=== PATIENT | male | born 1945 | race African-American/Black ===

== ENCOUNTER 2022-12-20 12:14 | Emergency (ER) | payer OTHER ==
[~2022-12-20] VITALS: Ht 165.1 cm; Wt 55.0 kg
[2022-12-20] MEDS ORDERED: ACETAMINOPHEN 650MG SUPP PR STA (12:28)
[2022-12-20] MEDS ORDERED: CEFEPIME 1,000 MG in DEXT 5% WATER 100 ML IV ONE (12:30)
[2022-12-20] MEDS ORDERED: VANCOMYCIN 1G PREMIX 200 ML IV ONE (12:30)
[2022-12-20] MEDS ORDERED: SODIUM CHLORIDE 0.9% 1,000 ML IV ONE (12:30)
[2022-12-20] MEDS ORDERED: CEFEPIME 1,000 MG in DEXTROSE 5% WATER 50 ML IV NR (13:00)
[2022-12-20 13:19] LABS: BASOPHILS % 0.4 % (0.0-2.0); HEMATOCRIT. 24.9 % (42.0-52.0); HEMOGLOBIN. 7.6 g/dL (14.0-18.0); LYMPHOCYTES % 31.5 % (20.0-50.0); MEAN CORPUSCULAR HEMOGLOBIN 27.1 pg (28.0-32.0); MEAN CORPUSCULAR VOLUME 89.3 fL (80.0-94.0); MEAN PLATELET VOLUME 8.9 fl (7.4-10.4); MONOCYTES % 5.6 % (2.0-8.0); NEUTROPHILS % 62.5 % (40.0-76.0); PLATELET 87 x1000/uL (130-400); RED BLOOD CELL COUNT 2.79 mill/uL (4.7-6.1); RED CELL DISTRIBUTION WIDTH 24.3 % (11.6-14.6)
[2022-12-20 13:21] LABS: CHLORIDE 118 mEq/L (98-107)
[2022-12-20 14:13] LABS: PLATELET ESTIMATE DECREASED
[2022-12-20] MEDS ORDERED: LEVETIRACETAM 1000MG PREMIX 100 ML IV ONE (15:15)
[2022-12-20] MEDS ORDERED: DEXAMETHASONE 10 MG/ML VIAL IV ONE (15:30)
[2022-12-20 15:34] LABS: CLARITY URINE CLOUDY (CLEAR); COLOR URINE YELLOW (YELLOW); KETONES URINE 1+ (NEGATIVE); LEUKOCYTE ESTERASE URINE 3+ (NEGATIVE); NITRITE URINE NEGATIVE (NEGATIVE); OCCULT BLOOD URINE TRACE (NEGATIVE); PH URINE 5.5 (4.5-8.0); PROTEIN URINE 1+ (NEGATIVE); SPECIFIC GRAVITY URINE 1.015 (1.005-1.030); UROBILINOGEN URINE 0.2 E.U./dL (0.2-1.0)
[2022-12-20 18:24] VITALS: BP 127/62
== END 2022-12-20 18:54 | disposition short-term general hospital (02) ==
LOC: ER 12:14 → CANBEDREQ 14:00 → ER 18:54
DX: A41.9 Sepsis, unspecified organism (principal); R41.82 Altered mental status, unspecified; I10 Essential (primary) hypertension; E11.9 Type 2 diabetes mellitus without complications; Z20.822 Contact with and (suspected) exposure to COVID-19; Z85.46 Personal history of malignant neoplasm of prostate
CPT/HCPCS: 36415; 70450; 71045; 80053; 81003; 83605; 83880; 84145; 84484; 85025; 87040; 87086; 87186; 87426; 93005; 96365; 96367; 96368; 96375; 99291; C9803; J0692; J1100; J1953; J3370; J7030; J7060